=== PATIENT | female | born 1990 | race African-American/Black ===

== ENCOUNTER 2021-04-19 02:04 | Emergency (ER) | payer OTHER, SELFPAY ==
[2021-04-19 03:13] VITALS: BP 114/79; PULSE 68; RESP 18; TEMP 36.6; O2SAT 98; BMI 25.1
[2021-04-19 03:28] LABS: Strep A Nucleic Acid Positive (Negative)
[2021-04-19 03:47] LABS: Influenza A PCR NEGATIVE (Negative); Influenza B PCR NEGATIVE (Negative); Resp Syncy Virus RNA Qual PCR NEGATIVE (Negative); SARS COV2 PCR INHOUSE NEGATIVE (Negative)
--- NOTE | 2021-04-19 04:51 | ED.GENADULT ---
HPI - General Adult General Chief complaint: General Medical Stated complaint: sorethroat Time Seen by Provider: 04/19/21 04:35 Source: patient Mode of arrival: ambulatory History of Present Illness HPI narrative: 30-year-old female presents with sore throat after was diagnosed with strep throat earlier in the day. Currently she denies any fevers or chills. Related Data Previous Rx's Medication Instructions Recorded amoxicillin 875 mg-potassium 1 tab PO Q12H 10 Days #20 tab 04/19/21 clavulanate 125 mg tablet (Augmentin) Allergies Allergy/AdvReac Type Severity Reaction Status Date / Time codeine [CODEINE] Allergy Mild HIVES Verified 04/19/21 04:03 codeine Allergy Unknown Hives Uncoded 04/19/21 04:03 Review of Systems Review of Systems: Pertinent positives and negatives as stated in HPI 10 point review of systems is otherwise negative. PMFSH Past Medical History Source: nursing notes reviewed Social History Social History Advance Directives: No Advance Directives Information Provided: No Patient : No Physical Exam Vital Signs: Vital Signs: Last Vital Signs Temp 98.6 F 04/19/21 05:19 Pulse 66 04/19/21 05:19 Resp 18 04/19/21 05:19 BP 120/74 04/19/21 05:19 Pulse Ox 99 04/19/21 05:19 Body Mass Index 25.1 VITAL SIGNS: Reviewed. GENERAL: Well developed, well nourished, in no acute distress. HEAD: Normocephalic/atraumatic EYES: PERRLA, EOMI OROPHARYNX: no oral lesions noted, posterior pharynx erythema with noted tonsillar enlargement/erythema/exudates NECK: Supple, + adenopathy LUNGS: Normal breath sounds. No adventitious sounds or accessory muscle use. SpO2<99> CARDIOVASCULAR: Regular rate and rhythm without noted murmurs ABDOMEN: Soft, non-tender, non-distended with bowel sounds. NEUROLOGIC: Alert and oriented x 4. Strength and sensation to light touch were grossly intact x 4. Course Course Course Narrative: 30-year-old female with history and clinical presentation consistent with positive findings on strep testing of strep pharyngitis and COVID-19 testing was negative. Patient was provided with initial antibiotics as well as combination analgesics and Cepacol for symptom relief. She was then discharged in stable condition with remaining course of antibiotics. Medical Decision Making Lab Data Labs: Lab Results 04/19/21 04/19/21 Range/Units 02:43 03:18 Influenza Type A (PCR) NEGATIVE (Negative) Influenza Type B (PCR) NEGATIVE (Negative) RSV RNA Qual (PCR) NEGATIVE (Negative) SARS-CoV-2 RNA (RT-PCR) NEGATIVE (Negative) S. pyogenes GrpA JOSE Positive A (Negative) Discharge Plan Discharge Clinical Impression: Strep pharyngitis, Lab test negative for COVID-19 virus Patient Disposition: Home, Self-Care Instructions: Strep Throat (ED) Additional Instructions: 1. Tylenol 1000 mg, orally, every 6 hours as needed for pain control and temperatures greater than 100.4. Do not exceed 4000 mg within 24 hours. 2. Ibuprofen 400 mg, orally with milk or food, every 6 hours as needed for pain control and temperatures greater than 100.4. You may take this in combination with Tylenol for improve symptom relief. 3. Your tested negative for COVID-19 today. 4. Recommend [id number] Cepacol or Sucrets for throat lozenges . Return to the ER for worsening symptoms. Prescriptions: New amoxicillin-pot clavulanate [Augmentin] 875-125 mg tablet 1 tab PO Q12H 10 Days Qty: 20 RF: 0 Interventions: ED Discharge Assessment Last Done: 04/19/21 05:20 Discharge Date/Time: 04/19/21 05:26
[2021-04-19] MEDS: Amoxicillin/Potassium Clav 875 MG TABLET PO (05:17)
[2021-04-19] MEDS: Ibuprofen 400 MG TABLET PO (05:17)
[2021-04-19] MEDS: Throat Lozenge, Medicated LOZENGE 1 LOZENGE MUCOUS MEM (05:17)
[2021-04-19] MEDS: Acetaminophen 325 MG TABLET 975 MG PO (05:17)
[2021-04-19 05:19] VITALS: BP 120/74; PULSE 66; RESP 18; TEMP 37; O2SAT 99
== END 2021-04-19 05:26 | disposition home or self-care (01) ==
PROVIDERS: Emergency Provider Student in an Organized Health Care Education/Training Program
DX: J02.0 Streptococcal pharyngitis (principal); Z20.822 Contact with and (suspected) exposure to COVID-19
CPT/HCPCS: 0241U; 36415; 87651; 99283; 99284